=== PATIENT | female | born 1985 | race Caucasian/White ===

== ENCOUNTER → 2020-04-07 10:43 | Outpatient (CLI) | payer OTHER, SELFPAY ==
--- NOTE | 2020-04-07 10:44 | DI.US.S_ITS ---
PROCEDURE: US PELVIC COMPLETE INDICATIONS: FOLLOW-UP RECENT COMPLEX RIGHT OVARIAN CYST TECHNIQUE: Real-time scanning was performed of the pelvic organs, with image documentation. Additional endovaginal scanning was necessary due to incomplete visualization of the adnexal and endometrial structures by transabdominal scanning. COMPARISON: None. FINDINGS: Transabdominal scanning: Limited scanning through the kidneys shows no hydronephrosis. No pathologic free abdominal or pelvic fluid. Endovaginal scanning: Uterus: Uterus is normal in size at 3.8 x 5.0 x 8.0 cm. The endometrium measures 8.1 mm in combined thickness. Ovaries: Right ovary measures 3.5 x 2.3 x 2.5 cm. Left ovary measures 3.6 x 2.4 x 3.5 cm and contains 2 simple cysts the largest measuring 1.6 cm. IMPRESSION: Essentially normal pelvic ultrasound, with resolution of a prior right complex ovarian cyst. Dictated by: Wiley Chavez M.D. on 04/07/2020 at 11:55 Approved by: Wiley Chavez M.D. on 04/07/2020 at 11:56
== END ==
PROVIDERS: Referring Provider Registered Nurse Diabetes Educator; Visit Provider Registered Nurse Diabetes Educator
DX: N94.6 Dysmenorrhea, unspecified (principal); N83.292 Other ovarian cyst, left side; N83.291 Other ovarian cyst, right side
CPT/HCPCS: 76830; 76856

== ENCOUNTER → 2020-05-24 12:44 | Outpatient (CLI) | payer OTHER, SELFPAY ==
--- NOTE | 2020-05-24 12:45 | DI.RAD.S_ITS ---
PROCEDURE: HL HYSTEROSAPINGOGRAPHY INDICATIONS: Infertility management COMPARISON: None. FINDINGS: Patient had a documented negative test prior to the study. Following speculum insertion, a balloon-tip catheter was inserted into the cervical canal, and secured by inflating the balloon. Contrast was then injected into the endometrial canal. Uterus: The uterine cavity appears normal in size and morphology, without synechiae or masses. Fallopian tubes: Both fallopian tubes fill with contrast, and appear normal in caliber and morphology. There is ready dispersion of contrast into the peritoneal cavity. IMPRESSION: Normal examination. Dictated by: Hanna White MD, PhD on 05/24/2020 at 14:13 Approved by: Hanna White MD, PhD on 05/24/2020 at 14:13
--- NOTE | 2020-05-30 07:01 | PM.PROC.1 ---
Procedures Date/Time Date of procedure: 05/24/20 Time of procedure: 13:30 General Procedure description: Hysterosalpingogram The patient was taken to the fluoroscopy suite. She was placed on the table. Informed consent was obtained. She was placed on an over returned bedpan with her bottom in the air. A bivalve speculum was placed into the vagina. The cervix was cleaned x3 with Betadine. A single-tooth tenaculum was placed on the anterior lip of the cervix. The HSG catheter passed easily into the endometrial cavity and the 3 cc balloon was inflated. 15 cc of Isovue 300 were injected under direct fluoroscopic examination. The contours of the uterine cavity were normal. There was spill from both fallopian tubes. The remainder of the Isovue was removed from the uterus. The HSG catheter was removed from the uterus. The single-tooth tenaculum was removed from the anterior lip of the cervix. The bivalve speculum was removed from the vagina. The patient tolerated the procedure well. Complications: none
== END ==
PROVIDERS: PCP Registered Nurse Diabetes Educator; Referring Provider Obstetrics & Gynecology; Visit Provider Obstetrics & Gynecology
DX: Z31.9 Encounter for procreative management, unspecified (principal)
CPT/HCPCS: 58322; 58340; 74740

== ENCOUNTER → 2020-09-19 14:57 | Outpatient (CLI) | payer OTHER, SELFPAY ==
--- NOTE | 2020-09-19 14:58 | DI.RAD.S_ITS ---
PROCEDURE: XR CHEST 2V INDICATIONS: SOB,lung pain. pt +Covid-19. TECHNIQUE: 2 views of the chest were acquired. COMPARISON: None. FINDINGS: Surgical changes and devices: None. Lungs and pleura: Lungs are clear. No pleural effusions or pneumothorax. Mediastinum: Mediastinal contours are normal. Heart size is normal. Bones and chest wall: No suspicious bony abnormalities. Soft tissues appear unremarkable. IMPRESSION: No acute cardiopulmonary process. Dictated by: Iker Jones M.D. on 09/19/2020 at 15:15 Approved by: Iker Jones M.D. on 09/19/2020 at 15:17
== END ==
PROVIDERS: PCP Registered Nurse Diabetes Educator; Referring Provider Registered Nurse Diabetes Educator; Visit Provider Registered Nurse Diabetes Educator
DX: U07.1 COVID-19 (principal); R06.02 Shortness of breath
CPT/HCPCS: 71046

== ENCOUNTER → 2021-06-15 06:54 | Outpatient (CLI) | payer OTHER, SELFPAY ==
[2021-06-15 07:46] LABS: HCG Quantitative /Beta subunit 29.1 mIU/mL
== END ==
PROVIDERS: PCP Registered Nurse Diabetes Educator; Referring Provider Obstetrics & Gynecology Reproductive Endocrinology; Visit Provider Obstetrics & Gynecology Reproductive Endocrinology
DX: Z32.00 Encounter for pregnancy test, result unknown (principal)
CPT/HCPCS: 36415; 84702

== ENCOUNTER → 2021-06-19 06:51 | Outpatient (CLI) | payer OTHER, SELFPAY ==
[2021-06-19 08:25] LABS: HCG Quantitative /Beta subunit 156.8 mIU/mL
== END ==
PROVIDERS: PCP Registered Nurse Diabetes Educator; Visit Provider Obstetrics & Gynecology Reproductive Endocrinology
DX: Z32.01 Encounter for pregnancy test, result positive (principal)
CPT/HCPCS: 36415; 84702

== ENCOUNTER → 2021-06-27 06:58 | Outpatient (CLI) | payer OTHER, SELFPAY ==
[2021-06-27 08:54] LABS: HCG Quantitative /Beta subunit 2225.1 mIU/mL
== END ==
PROVIDERS: PCP Registered Nurse Diabetes Educator; Referring Provider Obstetrics & Gynecology Reproductive Endocrinology; Visit Provider Obstetrics & Gynecology Reproductive Endocrinology
DX: Z32.01 Encounter for pregnancy test, result positive (principal)
CPT/HCPCS: 36415; 84702

== ENCOUNTER 2024-02-15 18:43 | Emergency (ER) | payer OTHER, SELFPAY ==
[2024-02-15 19:04] VITALS: BP 149/75; PULSE 81; RESP 16; TEMP 37.2; O2SAT 99; BMI 35.9
--- NOTE | 2024-02-15 19:18 | DI.RAD.S_ITS ---
PROCEDURE: XR CHEST 2V INDICATIONS: short of breath TECHNIQUE: 2 views of the chest were acquired. COMPARISON: [facility], CR, XR CHEST 2V, 09/19/2020, 15:02. FINDINGS: Surgical changes and devices: None. Lungs and pleura: Lungs are clear. No pleural effusions or pneumothorax. Mediastinum: Mediastinal contours are normal. Heart size is normal. Bones and chest wall: No suspicious bony abnormalities. Soft tissues appear unremarkable. IMPRESSION: No focal infiltrates are seen. No acute cardiopulmonary abnormality is seen. Dictated by: Oliver Berry M.D. on 02/15/2024 at 18:39 Approved by: Oliver Berry M.D. on 02/15/2024 at 18:39
[2024-02-15 20:02] LABS: Add Manual Diff / Slide Review NO; Basophils Absolute Auto 100 /uL (0-100); Basophils Percent Auto 0.5 % (0-2); Eosinophils Absolute Auto 300 /uL (0-450); Eosinophils Percent Auto 2.2 % (2-4); Hematocrit 37.4 % (36-46); Hemoglobin 12.5 g/dL (12.0-16.0); Lymphocytes Absolute Auto 1400 /uL (1100-4500); Lymphocytes Percent Auto 12.4 % (25-40); Mean Corpuscular HGB Conc 33.4 % (30-36); Mean Corpuscular Hemoglobin 27.6 PG (26-34); Mean Corpuscular Volume 82.8 fL (80-100); Monocytes Absolute Auto 800 /uL (0-900); Monocytes Percent Auto 6.8 % (3-14); Neutrophils Absolute Auto 8900 /uL (1500-7000); Neutrophils Percent Auto 78.1 % (50-75); Platelet Count 255 X10^3/uL (150-400); Red Blood Cell Count 4.51 X10^6/uL (4.0-5.2); Red Cell Distribution Width 13.4 % (11.6-14.8); White Blood Cell Count 11.4 X10^3/uL (4.5-11.0)
[2024-02-15 20:12] LABS: Alanine Aminotransferase 52 IU/L (<35); Albumin 4.3 g/dL (3.5-5.0); Albumin Globulin Ratio 1.3 (1.0-2.8); Alkaline Phosphatase 75 U/L (38-126); Aspartate Aminotransferase 45 IU/L (14-36); BUN Creatinine Ratio 21.2 (6-22); Bilirubin Total 0.6 mg/dL (0.2-1.3); Blood Urea Nitrogen 14 mg/dL (7-17); Calcium 8.9 mg/dL (8.4-10.2); Carbon Dioxide 22 mmol/L (22-32); Chloride 109 mmol/L (98-107); Estimated Glomerular Filt Rate > 60 mL/min (>60); Globulin 3.4 g/dL (1.7-4.1); Glucose 93 mg/dL (70-100); HEMOLYSIS 47 (0-50); Potassium 4.1 mmol/L (3.4-5.1); Sodium 135 mmol/L (137-145); Total Protein 7.7 g/dL (6.3-8.2)
--- NOTE | 2024-02-15 20:40 | ED_ITS ---
HPI - URI/Sore Throat General Chief Complaint: Shortness of Breath/Dyspnea Stated Complaint: post sx complication; pain, body aches, sob Time Seen by Provider: 02/15/24 19:18 Source: patient Mode of arrival: Ambulatory History of Present Illness HPI Narrative: Patient is a 38-year-old female who recently had hysterectomy for BRCA gene on February 12 2024 at the [facility]. She also reports that she had endometriosis and fibroids in her uterus and everything was taken out. She has since had upper respiratory like symptoms for the last day or or 2. She has significant runny nose nasal drainage and coughing. She presents with all over body aches and low-grade temp of 99.9?. She is also having increased pain in her surgical site. She reports that she is taking Tylenol Motrin and oxycodone which seemed to control the pain but it does seem to be getting a little bit worse since she was also trying to wean off the oxygen. She denies any sort of bleeding. She sometimes feels short of breath. She says night is worse when her nose is draining. She talked with her surgeon yesterday who prescribed her for Tessalon Perles which no really seem to be helping. Related Data Previous Rx's Medication Instructions Recorded letrozole 2.5 mg tablet 2.5 mg PO .COMPLEX #5 tabs 05/17/20 oxycodone 5 mg tablet 5 mg PO Q6H PRN pain #10 tabs 02/15/24 Allergies Allergy/AdvReac Type Severity Reaction Status Date / Time naproxen Allergy Severe full body Verified 04/18/20 15:18 hives latex Allergy Intermediate skin Verified 04/18/20 15:18 irritation Patient History Medical History Heavy menstrual period (~1999) Endometriosis (~2006) Cardiac arrhythmia (~1999) Ovarian cyst (~2019) Dysmenorrhea (~1997) Surgical History H/O right wrist surgery [place] teeth extracted Anesthesia PSVT (paroxysmal supraventricular tachycardia) (~2001) Family History Father Hypertension Hyperlipidemia Grandfather Hypertension Hyperlipidemia Grandfather Mental health problem Grandmother Mental health problem Social History Smoking Status: Never smoker second hand exposure: No alcohol intake: current substance use type: does not use Smoking Status: Never smoker alcohol intake frequency: holidays/special occasions only Exam Initial Vital Signs Initial Vital Signs: Vital Signs Temperature 99.0 F 02/15/24 19:04 Pulse Rate 81 02/15/24 19:04 Respiratory Rate 16 02/15/24 19:04 Blood Pressure 149/75 H 02/15/24 19:04 Pulse Oximetry 99 02/15/24 19:04 Oxygen Delivery Method Room Air 02/15/24 19:04 GENERAL: Alert 38-year-old female appears to not feel well HEENT: Head atraumatic,EOMI, pupils reactive, face symmetric, moist mucous membranes CARDIOVASCULAR: Regular rate and rhythm without murmurs, rubs or gallops. RESPIRATORY: Breath sounds equal bilaterally, no wheezes rales or rhonchi. ABDOMEN: Soft, tender lower abdomen tender to touch incision sites are non erythematous no drainage EXTREMITIES: Normal range of motion, no clubbing or edema. Neurovascularly intact NEUROLOGICAL: Alert and oriented x4.Normal gait and speech. SKIN: Warm, dry, no laceration, no petechiae, no rashes or lesions. Course Orders Ordered: ED Orders 02/15/24 19:09 Respiratory Panel (Film Array) Stat 02/15/24 19:18 Chest [XR chest 2V] Stat 02/15/24 19:45 CBC Auto Diff [Complete Blood Count AUTO DIFF] Stat CMP [Comprehensive Metabolic Panel] Stat 02/15/24 20:40 CT abdomen pelvis w con Stat Discontinued Medications Acetaminophen (Acetaminophen 325 Mg Tablet) 975 mg PO NOW ONE Stop: 02/15/24 20:41 Last Admin: 02/15/24 20:46 Dose: 975 mg Documented By: SHENA Ibuprofen (Ibuprofen 400 Mg Tablet) 800 mg PO NOW ONE Stop: 02/15/24 20:41 Last Admin: 02/15/24 20:47 Dose: 800 mg Documented By: SHENA Vital Signs Vital signs: Vital Signs - 8 hr 02/15/24 19:04 02/15/24 22:30 Temperature 99.0 F Pulse Rate 81 80 Respiratory Rate 16 18 Blood Pressure 149/75 H 135/72 Pulse Oximetry 99 99 Oxygen Delivery Method Room Air Room Air [facility] - URI/Sore Throat Lab Data 02/15/24 19:45 02/15/24 19:45 Labs: Lab Results 02/15/24 02/15/24 Range/Units 19:09 19:45 WBC 11.4 H (4.5-11.0) X10^3/uL RBC 4.51 (4.0-5.2) X10^6/uL Hgb 12.5 (12.0-16.0) g/dL Hct 37.4 (36-46) % MCV 82.8 (80-100) fL MCH 27.6 (26-34) PG MCHC 33.4 (30-36) % RDW 13.4 (11.6-14.8) % Plt Count 255 (150-400) X10^3/uL Neut % (Auto) 78.1 H (50-75) % Lymph % (Auto) 12.4 L (25-40) % [place] % (Auto) 6.8 (3-14) % Eos % (Auto) 2.2 (2-4) % Baso % (Auto) 0.5 (0-2) % Neut # (Auto) 8900 H (9778-2856) /uL Lymph # (Auto) 1400 (4486-6318) /uL [place] # (Auto) 800 (0-900) /uL Eos # (Auto) 300 (0-450) /uL Baso # (Auto) 100 (0-100) /uL Sodium 135 L (137-145) mmol/L Potassium 4.1 (3.4-5.1) mmol/L Chloride 109 H (98-107) mmol/L Carbon Dioxide 22 (22-32) mmol/L BUN 14 (7-17) mg/dL Creatinine 0.66 (0.52-1.04) mg/dL Estimated GFR > 60 (>60) mL/min BUN/Creatinine Ratio 21.2 (6-22) Glucose 93 (70-100) mg/dL Calcium 8.9 (8.4-10.2) mg/dL Total Bilirubin 0.6 (0.2-1.3) mg/dL AST 45 H (14-36) IU/L ALT 52 H (<35) IU/L Alkaline Phosphatase 75 (38-126) U/L Total Protein 7.7 (6.3-8.2) g/dL Albumin 4.3 (3.5-5.0) g/dL Globulin 3.4 (1.7-4.1) g/dL Albumin/Globulin Ratio 1.3 (1.0-2.8) Chlamy pneumoniae PCR Not detected (Not Detect) Adenovirus (PCR) Not detected (Not Detect) B.parapertussis DNA PCR Not detected (Not Detecte) Coronavirus OC43 (PCR) Not detected (Not Detect) Coronavirus HKU1 (PCR) Not detected (Not Detect) Coronavirus 229E (PCR) Not detected (Not Detect) SARS-CoV-2 (PCR) Not detected (Not Detecte) Coronavirus NL63 (PCR) Not detected (Not Detect) Human Metapneumovir PCR Not detected (Not Detect) Influenza Type A (PCR) Not detected (Not Detect) Influenza Type B (PCR) Not detected (Not Detect) M. pneumoniae (PCR) Not detected (Not Detect) Parainfluenza 1 (PCR) Not detected (Not Detect) Parainfluenza 2 (PCR) Not detected (Not Detect) Parainfluenza 3 (PCR) Not detected (Not Detect) Parainfluenza 4 (PCR) Not detected (Not Detect) RSV (PCR) Not detected (Not Detect) Entero/Rhino (PCR) Not detected (Not Detect) Urine Dip Bedside Urine Glucose Negative Bedside Urine Bilirubin - Negative Bedside Urine Ketone - Negative Urine Specific [place] 1.010 Bedside Urine Occult Blood - Negative Bedside Urine pH 6.0 Bedside Urine Protein - Negative Bedside Urine Urobilinogen - Negative Bedside Urine Nitrite - Negative Bedside Urine Leukocytes - Negative Esterase Imaging Data CT scan - abdomen/pelvis: Radiologist's Impression: PROCEDURE: CT ABDOMEN PELVIS W CON INDICATIONS: post hysterectomy increased pain low grade fever TECHNIQUE: After the administration of intravenous contrast, axial sections acquired from the lung bases to the pubic symphysis. Coronal and sagittal reformats were performed. For radiation dose reduction, the following was used: automated exposure control, adjustment of mA and/or kV according to patient size. COMPARISON: None. FINDINGS: Image quality: Diagnostic. Lower Chest: No significant findings. ABDOMEN: Liver: No solid mass. Gallbladder: No radiopaque gallstones or wall thickening. Biliary ducts: No biliary dilation. Pancreas: No ductal dilation. Spleen: Size is within normal limits. Adrenal Glands: No adrenal nodules. Kidneys and Ureters: No hydronephrosis. No solid mass. No complex renal cystic lesion which requires follow up. Stomach and Bowel: Normal colonic caliber, without significant wall thickening. Peritoneum: No abnormal intraperitoneal fluid. No free air. Ventral Wall: No significant ventral hernia. Abdominal Nodes: No retroperitoneal or mesenteric adenopathy by size criteria. Vessels: Aorta and inferior vena cava are normal in size. PELVIS: Pelvic Organs: Unremarkable. Prior hysterectomy. There are small amounts of gas within the anterior extraperitoneal midline consistent with recent surgery in that area. A 3 cm right ovarian cyst is present. No abscess is seen. Bladder: No bladder wall thickening, accounting for underdistention. Pelvic Nodes: No enlarged lymph nodes. Miscellaneous: No inguinal hernias are seen. Bones: No aggressive osseous abnormality. IMPRESSION: Please correlate for timing of recent surgery. Small amounts of gas are present within the anterior extraperitoneal space at the lower midline of the anterior pelvis. Dominant right ovarian 3 cm cyst incidentally noted. No abscess found. Dictated by: Wiley Chavez M.D. on 02/15/2024 at 21:58 Chest x-ray: Radiologist's Impression: PROCEDURE: XR CHEST 2V INDICATIONS: short of breath TECHNIQUE: 2 views of the chest were acquired. COMPARISON: [facility], , XR CHEST 2V, 09/19/2020, 15:02. FINDINGS: Surgical changes and devices: None. Lungs and pleura: Lungs are clear. No pleural effusions or pneumothorax. Mediastinum: Mediastinal contours are normal. Heart size is normal. Bones and chest wall: No suspicious bony abnormalities. Soft tissues appear unremarkable. IMPRESSION: No focal infiltrates are seen. No acute cardiopulmonary abnormality is seen. Dictated by: Oliver Berry M.D. on 02/15/2024 at 18:39 MDM Narrative Medical decision making narrative: Patient is a 30-year-old female who is postop hysterectomy day number 3 presents today with body aches coughing and increased abdominal pain. She has a low- grade temperature of 99.9?. Really complaining of some upper respiratory nasal congestion and drainage. Blood work has been reviewed WBC 11.4 hemoglobin 12.5 hematocrit 37.4 platelets 255, sodium 135, potassium 4.1, chloride 109, carbon dioxide 22, BUN 14, creatinine 0.6 AST 45 ALT 52 Urinalysis negative Respiratory panel negative Chest x-ray no acute cardiopulmonary process CT no complication from recent surgery no abscess Patient is given Motrin and Tylenol she states that she is taking these at home she recently just took an and oxycodone. She is almost out of of the oxycodone as well, would like a refill. We discussed that she should need more she needs to call her surgeon but we will give her more at this time. At this time I do suspect patient has an ongoing like viral illness with her upper respiratory like symptoms. No need for antibiotics at this time. She has no UTI abdominal abscess or evidence of pneumonia. I suspect that her increased abdominal pain is from crossing. She is Tessalon Karine which she says does not really help. She has not really wheezy and does not have a bronchospastic cough albuterol unlikely to help offered it to her. At this time recommend supportive care only. #65: Appropriate Treatment for Patients with URI X The patient was diagnosed with upper respiratory infection and was not prescribed or dispensed an antibiotic. [SATISFIES MIPS PERFORMANCE] [] The patient has competing comorbid condition within the last 12 months. The comorbid condition was [] (e.g., neutropenia, cystic fibrosis, chronic bronchitis, pulmonary edema, respiratory failure, rheumatoid lung disease). [MIPS PERFORMANCE EXCEPTION/EXCLUSION] [] The patient is already on antibiotics, or has taken them within the last 30 days. [MIPS PERFORMANCE EXCEPTION/EXCLUSION] [] The patient had a competing diagnosis of [] (e.g. acute otitis media, chronic sinusitis, cellulitis, UTI, etc.). [MIPS PERFORMANCE EXCEPTION/EXCLUSION] [] The patient was diagnosed with upper respiratory infection and was prescribed or dispensed an antibiotic. [DOES NOT SATISFY MIPS PERFORMANCE] Discharge Plan Departure Patient Disposition: Home Clinical Impression: Acute upper respiratory infection Instructions: DI for Viral Upper Respiratory Infection -- Adult Activity Restrictions/Additional Instructions: *You have been diagnosed with upper respiratory infection *What to do: At this time no need for antibiotics. Unfortunately not a lot to help. He may try [id number] Claritin or Zoya to help with the nasal drainage. *Continue to take medications as directed Continue pain medications as previously prescribed Oxycodone 5 mg every 6 hours if needed for severe pain, if you need more please talk with your surgeon *Follow up with your primary care provider in 2-3 days or call [phone] *Return to ER if you should have increase pain shortness of breath [or] any new, worsening or concerning symptoms CONTROLLED SUBSTANCE DISCHARGE (Narcotoic/benzodiazepine/Flexeril/Phenergan) 1. You have been prescribed narcotic medications, it does have acetaminophen/Tylenol/paracetamol in it, DO NOT TAKE MORE THAN 4,00mg in 24 hours of Tylenol. TRAMADOL DOES NOT CONTAIN TYLENOL 2. Please understand that we cannot provide further refills of narcotics, benzodiazepines or controlled substances through the ED and her pain management will need to be through your provider. 3. While on these medications you cannot drive or operate heavy machinery. 4. You cannot sign legal documents or perform any duties such as this. 5. As long as you're taking opiate pain medications he should also be taking a stool softener such as Colace, Dulcolax, MiraLAX or prune juice, to help avoid constipation. Prescriptions: New oxycodone 5 mg tablet 5 mg PO Q6H PRN (Reason: pain) Qty: 10 0RF No Action letrozole 2.5 mg tablet 2.5 mg PO .COMPLEX Qty: 5 3RF Rx Instructions: 2.5 mg PO Day 3-7 of period; Referrals: Ariel Bentley ARNP [Primary Care Provider] - Stand Alone Forms: Patient Portal/API
[2024-02-15] MEDS: ACETAMINOPHEN 325 MG TABLET 975 MG PO (20:46)
[2024-02-15] MEDS: IBUPROFEN 400 MG TABLET 800 MG PO (20:47)
[2024-02-15 20:48] LABS: Adenovirus Not Detected (Not Detect); B. parapertussis Not Detected (Not Detecte); Bordetella pertussis Not Detected (Not Detect); Chlamydophila pneumoniae Not Detected (Not Detect); Coronavirus 229E Not Detected (Not Detect); Coronavirus HKU1 Not Detected (Not Detect); Coronavirus NL 63 Not Detected (Not Detect); Coronavirus OC43 Not Detected (Not Detect); Human Metapneumovirus Not Detected (Not Detect); Human Rhinovirus/Enterovirus Not Detected (Not Detect); Influenza A Not Detected (Not Detect); Influenza B Not Detected (Not Detect); Mycoplasma pneumoniae Not Detected (Not Detect); Parainfluenza Virus 1 Not Detected (Not Detect); Parainfluenza Virus 2 Not Detected (Not Detect); Parainfluenza Virus 3 Not Detected (Not Detect); Parainfluenza Virus 4 Not Detected (Not Detect); Respiratory Syncytial Virus Not Detected (Not Detect); SARS- CoV-2 Not Detected (Not Detecte)
[2024-02-15 22:30] VITALS: BP 135/72; PULSE 80; RESP 18; O2SAT 99
== END 2024-02-15 22:31 | disposition home or self-care (01) ==
PROVIDERS: Emergency Provider Emergency Medicine; PCP Registered Nurse Diabetes Educator
DX: J06.9 Acute upper respiratory infection, unspecified (principal); R05.9 Cough, unspecified; R10.9 Unspecified abdominal pain; Z20.822 Contact with and (suspected) exposure to COVID-19; Z90.710 Acquired absence of both cervix and uterus
CPT/HCPCS: 36415; 71046; 74177; 80053; 81003; 85025; 87633; 99283; 99284; Q9967